=== PATIENT | female | born 1950 | race Two or more races ===

== ENCOUNTER → 2023-03-26 | Outpatient (CLI) | payer OTHER ==
[2023-03-26 09:55] LABS: Basophils # (auto) 0.1 10 ^3/uL (0-0.2); Basophils % (auto) 0.5 % (0.0-2.0); Eosinophils # (auto) 0.2 10 ^3/uL (0-0.8); Eosinophils % (auto) 1.6 % (0.0-7.0); Hematocrit 42.8 % (36.0-46.0); Hemoglobin 14.6 g/dL (12.2-16.2); Lymphocytes # (auto) 2.4 10 ^3/uL (0.4-5.4); Lymphocytes % (auto) 22.2 % (10.0-50.0); Mean Corpuscular Volume 88.1 fL (80.0-100.0); Monocytes # (auto) 0.8 10 ^3/uL (0-1.3); Monocytes % (auto) 7.2 % (0.0-12.0); Neutrophils # (auto) 7.3 10 ^3/uL (1.6-8.6); Neutrophils % (auto) 68.5 % (37.0-80.0); Nucleated Red Blood Cells % 0.2 %; Red Blood Cells 4.86 10^6/uL (4.0-5.20); Red Cell Distribution Width 14.5 % (11.8-14.3); White Blood Cell 10.7 10^3/uL (4.4-10.8)
[2023-03-26 09:59] LABS: Urine Bacteria NONE SEEN /hpf (None Seen); Urine Blood 1+ /uL (Negative); Urine Specific Gravity 1.017 (1.001-1.035); Urine WBC 2 /hpf (0 - 5)
[2023-03-26 10:22] LABS: Potassium 3.8 mmol/L (3.5-5.1)
[2023-03-26 10:43] LABS: Albumin 3.9 g/dL (3.4-5.0); BUN/Creatinine Ratio 11.5 (10.0-20.0); Bilirubin, Total 0.4 mg/dL (0.2-1.0); Calcium 8.9 mg/dL (8.5-10.1); Total Protein 7.8 g/dL (6.4-8.2)
== END | disposition home or self-care (01) ==
LOC: LAB 09:32
PROVIDERS: ATTEND Student in an Organized Health Care Education/Training Program
DX: E11.9 Type 2 diabetes mellitus without complications (principal); I10 Essential (primary) hypertension; E03.8 Other specified hypothyroidism
CPT/HCPCS: 36415; 80053; 80061; 81001; 83036; 84439; 84443; 85025; 87086

== ENCOUNTER → 2023-05-20 | Outpatient (CLI) | payer OTHER | END | disposition home or self-care (01) | LOC: LAB 11:16 | DX: Z91.09 Other allergy status, other than to drugs and biological substances (principal) | CPT/HCPCS: 82785 ==

== ENCOUNTER 2023-09-07 15:42 | Inpatient (IN) | payer OTHER ==
[~2023-09-07] VITALS: Ht 162.6 cm; Wt 124.0 kg
[2023-09-07 16:51] LABS: Basophils # (auto) 0.1 10 ^3/uL (0-0.2); Basophils % (auto) 0.4 % (0.0-2.0); Eosinophils # (auto) 0 10 ^3/uL (0-0.8); Eosinophils % (auto) 0.3 % (0.0-7.0); Hematocrit 43.7 % (36.0-46.0); Hemoglobin 14.8 g/dL (12.2-16.2); Lymphocytes # (auto) 1.4 10 ^3/uL (0.4-5.4); Lymphocytes % (auto) 8.9 % (10.0-50.0); Mean Corpuscular Hemoglobin 28.8 pg (28.0-32.0); Mean Corpuscular Hgb Conc. 33.9 g/dL (32.0-36.0); Monocytes # (auto) 1.4 10 ^3/uL (0-1.3); Monocytes % (auto) 8.5 % (0.0-12.0); Neutrophils # (auto) 13.2 10 ^3/uL (1.6-8.6); Neutrophils % (auto) 81.9 % (37.0-80.0); Nucleated Red Blood Cells % 0.1 %; Red Blood Cells 5.14 10^6/uL (4.0-5.20); Red Cell Distribution Width 14.8 % (11.8-14.3); White Blood Cell 16.1 10^3/uL (4.4-10.8)
[2023-09-07 17:10] LABS: Alanine Aminotransferase 12 U/L (7-40); Albumin 4.4 g/dL (3.2-4.8); Alkaline Phosphatase 106 U/L (46-116); Anion Gap 8 (5-15); Aspartate Aminotransferase 14 U/L (13-40); BUN/Creatinine Ratio 9.8 (10.0-20.0); Bilirubin, Total 1.7 mg/dL (0.2-1.0); Blood Urea Nitrogen 11 mg/dL (9-23); Calcium 9.4 mg/dL (8.7-10.4); Carbon Dioxide 30 mmol/L (20-30); Chloride 94 mmol/L (98-107); Glucose 147 mg/dL (74-106); Sodium 132 mmol/L (136-145); Total Protein 7.2 g/dL (5.7-8.2)
[2023-09-07 17:23] LABS: Potassium 2.9 mmol/L (3.5-5.1)
[2023-09-08] MEDS ORDERED: LACTATED RINGER'S 1,000 ML IV ONE (01:00)
[2023-09-08 01:42] VITALS: PULSE 89; RESP 20; O2SAT 92
[2023-09-08] MEDS ORDERED: metroNIDAZOLE 500MG/100ML 100 ML IV ONE (01:45)
[2023-09-08] MEDS ORDERED: PIPERACILLIN-TAZOB 3.375GM 100 ML IV ONE (01:45)
[2023-09-08 01:51] LABS: INR 1.13 (0.9-1.15); Partial Thromboplastin Time 29.3 SEC (24.5-34.5); Prothrombin Time 11.8 sec (9.3-11.8)
[2023-09-08 01:54] LABS: Magnesium 1.8 mg/dL (1.6-2.6)
[2023-09-08] MEDS ORDERED: ONDANSETRON HCL 4 MG/2 ML VIAL IV ONE (02:00)
[2023-09-08] MEDS ORDERED: POTASSIUM EFFERVESENT TAB 25 MEQ PO ONE (02:00)
[2023-09-08] MEDS ORDERED: fentaNYL CITRATE 100 MCG/2 ML VL IV ONE (02:00)
[2023-09-08 02:17] LABS: Basophils # (auto) 0.1 10 ^3/uL (0-0.2); Basophils % (auto) 0.3 % (0.0-2.0); Eosinophils # (auto) 0.1 10 ^3/uL (0-0.8); Eosinophils % (auto) 0.4 % (0.0-7.0); Hematocrit 43.6 % (36.0-46.0); Hemoglobin 14.7 g/dL (12.2-16.2); Lymphocytes # (auto) 1.5 10 ^3/uL (0.4-5.4); Lymphocytes % (auto) 9.5 % (10.0-50.0); Mean Corpuscular Hemoglobin 28.8 pg (28.0-32.0); Mean Corpuscular Hgb Conc. 33.6 g/dL (32.0-36.0); Mean Corpuscular Volume 85.7 fL (80.0-100.0); Monocytes # (auto) 1.7 10 ^3/uL (0-1.3); Monocytes % (auto) 10.4 % (0.0-12.0); Neutrophils # (auto) 12.9 10 ^3/uL (1.6-8.6); Neutrophils % (auto) 79.4 % (37.0-80.0); Nucleated Red Blood Cells % 0.1 %; Red Blood Cells 5.09 10^6/uL (4.0-5.20); Red Cell Distribution Width 15.1 % (11.8-14.3); White Blood Cell 16.3 10^3/uL (4.4-10.8)
[2023-09-08] MEDS ORDERED: ONDANSETRON HCL 4 MG/2 ML VIAL IV PRN (04:00)
[2023-09-08] MEDS ORDERED: DEXTROSE (50%) 50ML SYRG IV PRN (04:00)
[2023-09-08] MEDS ORDERED: metroNIDAZOLE 500MG/100ML 100 ML IV SCH (06:00)
[2023-09-08] MEDS: ACCU-CHEK COMFORT CURVE STRIP VI SCH ×4 (06:57→22:16)
[2023-09-08] MEDS: LEVOTHYROXINE SODIUM 100 MCG TAB PO SCH (07:00)
[2023-09-08] MEDS: VANCOMYCIN HCL 500MG/5ML ORAL SOL PO SCH ×4 (07:00→22:26)
[2023-09-08] MEDS: InsuLIN REG 1unit/0.01ml Soln (100units/ml) SC SCH ×4 (07:01→22:00)
[2023-09-08] MEDS ORDERED: CALCIUM GLUC 1,000mg/50ml-NS 50 ML IV SCH (08:30)
[2023-09-08] MEDS ORDERED: POTASSIUM CHL 20MEQ/100ML 100 ML IV SCH (08:45)
[2023-09-08] MEDS: metroNIDAZOLE 500MG/100ML 100 ML IV SCH ×2 (08:47→18:18)
[2023-09-08] MEDS: cefTRIAXone 1GM/50ML D5W 50 ML IV SCH (08:48)
[2023-09-08] MEDS: FUROSEMIDE 40 MG TAB PO SCH (08:48)
[2023-09-08] MEDS: LOSARTAN POTASSIUM 25 MG TAB PO SCH (08:48)
[2023-09-08] MEDS: HYDROcodone-ACET 5/325MG TAB PO PRN ×2 (12:42→19:22)
[2023-09-08 12:58] LABS: Basophils # (auto) 0.1 10 ^3/uL (0-0.2); Basophils % (auto) 0.4 % (0.0-2.0); Eosinophils # (auto) 0.2 10 ^3/uL (0-0.8); Eosinophils % (auto) 1.7 % (0.0-7.0); Hematocrit 41.9 % (36.0-46.0); Hemoglobin 14.1 g/dL (12.2-16.2); Lymphocytes # (auto) 1.4 10 ^3/uL (0.4-5.4); Lymphocytes % (auto) 11.2 % (10.0-50.0); Mean Corpuscular Hemoglobin 28.6 pg (28.0-32.0); Mean Corpuscular Hgb Conc. 33.6 g/dL (32.0-36.0); Mean Corpuscular Volume 85.3 fL (80.0-100.0); Monocytes # (auto) 1.7 10 ^3/uL (0-1.3); Monocytes % (auto) 13.8 % (0.0-12.0); Neutrophils # (auto) 9.1 10 ^3/uL (1.6-8.6); Neutrophils % (auto) 72.9 % (37.0-80.0); Red Blood Cells 4.92 10^6/uL (4.0-5.20); Red Cell Distribution Width 14.8 % (11.8-14.3); White Blood Cell 12.4 10^3/uL (4.4-10.8)
[2023-09-08 13:22] LABS: Alanine Aminotransferase 11 U/L (7-40); Alkaline Phosphatase 111 U/L (46-116); Calcium 9.1 mg/dL (8.7-10.4); Carbon Dioxide 31 mmol/L (20-30); Chloride 96 mmol/L (98-107)
[2023-09-08 13:23] LABS: Albumin 4.1 g/dL (3.2-4.8); Anion Gap 7 (5-15); Aspartate Aminotransferase 15 U/L (13-40); BUN/Creatinine Ratio 16.3 (10.0-20.0); Bilirubin, Total 0.9 mg/dL (0.2-1.0); Blood Urea Nitrogen 20 mg/dL (9-23); Glucose 115 mg/dL (74-106); Magnesium 1.9 mg/dL (1.6-2.6); Sodium 134 mmol/L (136-145); Total Protein 6.8 g/dL (5.7-8.2)
[2023-09-08 13:27] LABS: Potassium 2.7 mmol/L (3.5-5.1)
[2023-09-08] MEDS ORDERED: POTASSIUM CHL 20 Meq TABLET PO ONE (14:00)
[2023-09-08] MEDS ORDERED: MAGNESIUM OXIDE 400 MG TAB PO ONE (14:00)
[2023-09-08 19:27] VITALS: PULSE 84; RESP 18; O2SAT 94
[2023-09-08 21:54] LABS: Alanine Aminotransferase 13 U/L (7-40); Albumin 3.9 g/dL (3.2-4.8); Alkaline Phosphatase 94 U/L (46-116); Anion Gap 6 (5-15); Aspartate Aminotransferase 22 U/L (13-40); BUN/Creatinine Ratio 18.4 (10.0-20.0); Bilirubin, Total 0.7 mg/dL (0.2-1.0); Blood Urea Nitrogen 23 mg/dL (9-23); Carbon Dioxide 32 mmol/L (20-30); Chloride 96 mmol/L (98-107); Glucose 105 mg/dL (74-106); Potassium 3.6 mmol/L (3.5-5.1); Sodium 134 mmol/L (136-145); Total Protein 6.5 g/dL (5.7-8.2)
[2023-09-08] MEDS: CHOLECALCIFEROL (VITD3) 1,000UNIT=25mCg TAB PO SCH (22:15)
[2023-09-08] MEDS: ATORVASTATIN 20 MG TAB PO SCH (22:15)
[2023-09-08] MEDS: QUEtiapine FUMARATE 25 MG TAB PO SCH (22:16)
[2023-09-08] MEDS: FLORASTOR (S. BOULARDII) 250 MG CAP PO SCH (22:16)
[2023-09-09] VITALS (8 sets, daily range): BP systolic 96–118; BP diastolic 43–67; PULSE 63–78; RESP 16–19; TEMP 97.5–98.2; O2SAT 3–98
[2023-09-09 00:42] LABS: Urine Bacteria FEW /hpf (None Seen); Urine Blood 1+ /uL (Negative); Urine Clarity HAZY (Clear); Urine Color Yellow (Yellow); Urine Hyaline Cast MOD /lpf (0 - 2); Urine Protein, UAD 1+ (Negative); Urine Specific Gravity 1.024 (1.001-1.035); Urine Urobilinogen Normal (Negative); Urine WBC 82 /hpf (0 - 5)
[2023-09-09] MEDS: metroNIDAZOLE 500MG/100ML 100 ML IV SCH ×3 (02:23→18:15)
[2023-09-09] MEDS: HYDROcodone-ACET 5/325MG TAB PO PRN ×3 (03:06→12:40)
[2023-09-09] MEDS ORDERED: DAPA1TAB4 PO (05:00)
[2023-09-09] MEDS ORDERED: LEVO112T2 PO (05:01)
[2023-09-09] MEDS ORDERED: HYDR25TA4 PO (05:03)
[2023-09-09] MEDS ORDERED: QUET25TA37 PO (05:07)
[2023-09-09] MEDS ORDERED: GABA-1250 PO (05:08)
[2023-09-09] MEDS ORDERED: CHOL20007 PO (05:11)
[2023-09-09] MEDS: ACCU-CHEK COMFORT CURVE STRIP VI SCH ×4 (05:54→22:25)
[2023-09-09] MEDS: LEVOTHYROXINE SODIUM 100 MCG TAB PO SCH (05:54)
[2023-09-09] MEDS: VANCOMYCIN HCL 500MG/5ML ORAL SOL PO SCH ×4 (05:54→22:22)
[2023-09-09] MEDS: InsuLIN REG 1unit/0.01ml Soln (100units/ml) SC SCH ×4 (05:58→22:00)
[2023-09-09 06:41] LABS: Basophils # (auto) 0 10 ^3/uL (0-0.2); Basophils % (auto) 0.3 % (0.0-2.0); Eosinophils # (auto) 1.4 10 ^3/uL (0-0.8); Eosinophils % (auto) 14.7 % (0.0-7.0); Hematocrit 37.4 % (36.0-46.0); Hemoglobin 12.8 g/dL (12.2-16.2); Lymphocytes # (auto) 1.7 10 ^3/uL (0.4-5.4); Mean Corpuscular Hemoglobin 29.5 pg (28.0-32.0); Mean Corpuscular Hgb Conc. 34.1 g/dL (32.0-36.0); Mean Corpuscular Volume 86.3 fL (80.0-100.0); Monocytes # (auto) 1.2 10 ^3/uL (0-1.3); Monocytes % (auto) 12.8 % (0.0-12.0); Neutrophils # (auto) 5.2 10 ^3/uL (1.6-8.6); Neutrophils % (auto) 54.2 % (37.0-80.0); Red Blood Cells 4.33 10^6/uL (4.0-5.20); Red Cell Distribution Width 14.7 % (11.8-14.3); White Blood Cell 9.7 10^3/uL (4.4-10.8)
[2023-09-09 06:59] LABS: Alanine Aminotransferase 13 U/L (7-40); Albumin 3.7 g/dL (3.2-4.8); Alkaline Phosphatase 99 U/L (46-116); Anion Gap 4 (5-15); Aspartate Aminotransferase 17 U/L (13-40); BUN/Creatinine Ratio 19.8 (10.0-20.0); Blood Urea Nitrogen 19 mg/dL (9-23); Calcium 8.6 mg/dL (8.7-10.4); Carbon Dioxide 32 mmol/L (20-30); Chloride 97 mmol/L (98-107); Glucose 91 mg/dL (74-106); Magnesium 2.1 mg/dL (1.6-2.6); Potassium 3.4 mmol/L (3.5-5.1); Sodium 133 mmol/L (136-145)
[2023-09-09 07:00] LABS: Bilirubin, Total 0.6 mg/dL (0.2-1.0); Total Protein 6.2 g/dL (5.7-8.2)
[2023-09-09] MEDS ORDERED: POTASSIUM CHL 20 Meq TABLET PO ONE (08:00)
[2023-09-09] MEDS ORDERED: MET500T PO ×2 (08:01)
[2023-09-09] MEDS ORDERED: VANC500PO PO ×2 (08:01)
[2023-09-09] MEDS ORDERED: SACC250C PO (08:01)
[2023-09-09] MEDS ORDERED: LEVO500T91 PO ×2 (08:01)
[2023-09-09] MEDS: cefTRIAXone 1GM/50ML D5W 50 ML IV SCH (08:31)
[2023-09-09] MEDS: FUROSEMIDE 40 MG TAB PO SCH (08:32)
[2023-09-09] MEDS: CHOLECALCIFEROL (VITD3) 1,000UNIT=25mCg TAB PO SCH (08:32)
[2023-09-09] MEDS: FLORASTOR (S. BOULARDII) 250 MG CAP PO SCH ×2 (08:33→22:24)
[2023-09-09] MEDS: LOSARTAN POTASSIUM 25 MG TAB PO SCH (10:00)
[2023-09-09] MEDS: QUEtiapine FUMARATE 25 MG TAB PO SCH (18:17)
[2023-09-09] MEDS: ATORVASTATIN 20 MG TAB PO SCH (22:24)
[2023-09-09] MEDS: ACETAMINOPHEN 325 MG TAB PO PRN (22:25)
[2023-09-09] MEDS ORDERED: CHOLESTYRAMINE 4 GM POWDER GT SCH (23:00)
[2023-09-10] VITALS (7 sets, daily range): BP systolic 96–125; BP diastolic 45–66; PULSE 67–84; RESP 18–20; TEMP 97.7–98.3; O2SAT 3–97
[2023-09-10] MEDS: metroNIDAZOLE 500MG/100ML 100 ML IV SCH ×3 (01:58→17:37)
[2023-09-10] MEDS: VANCOMYCIN HCL 500MG/5ML ORAL SOL PO SCH ×4 (06:06→21:46)
[2023-09-10] MEDS: LEVOTHYROXINE SODIUM 100 MCG TAB PO SCH (06:09)
[2023-09-10] MEDS: ACCU-CHEK COMFORT CURVE STRIP VI SCH ×4 (06:10→21:56)
[2023-09-10] MEDS: InsuLIN REG 1unit/0.01ml Soln (100units/ml) SC SCH ×4 (06:44→21:56)
[2023-09-10 06:48] LABS: Anion Gap 6 (5-15); Calcium 8.6 mg/dL (8.7-10.4); Carbon Dioxide 30 mmol/L (20-30); Chloride 100 mmol/L (98-107); Potassium 3.7 mmol/L (3.5-5.1); Sodium 136 mmol/L (136-145)
[2023-09-10 06:54] LABS: BUN/Creatinine Ratio 14.3 (10.0-20.0); Blood Urea Nitrogen 10 mg/dL (9-23); Glucose 78 mg/dL (74-106)
[2023-09-10] MEDS: LOSARTAN POTASSIUM 25 MG TAB PO SCH (10:00)
[2023-09-10] MEDS: FLORASTOR (S. BOULARDII) 250 MG CAP PO SCH ×2 (10:13→21:46)
[2023-09-10] MEDS: HYDROcodone-ACET 5/325MG TAB PO PRN ×3 (10:13→21:57)
[2023-09-10] MEDS: FUROSEMIDE 40 MG TAB PO SCH (10:14)
[2023-09-10] MEDS: ENOXAPARIN SOD 40 MG/0.4 ML SYRINGE SC SCH (10:14)
[2023-09-10] MEDS: cefTRIAXone 1GM/50ML D5W 50 ML IV SCH (10:15)
[2023-09-10] MEDS: CHOLESTYRAMINE 4 GM POWDER PO SCH ×3 (11:00→23:10)
[2023-09-10] MEDS: CHOLECALCIFEROL (VITD3) 1,000UNIT=25mCg TAB PO SCH (12:13)
[2023-09-10] MEDS: QUEtiapine FUMARATE 25 MG TAB PO SCH (17:37)
[2023-09-10] MEDS: ATORVASTATIN 20 MG TAB PO SCH (21:46)
[2023-09-11] MEDS: metroNIDAZOLE 500MG/100ML 100 ML IV SCH ×3 (02:01→18:42)
[2023-09-11 04:54] VITALS: BP_SYST 125; BP_SYST 90; BP_DIAS 55; BP_DIAS 71; PULSE 70; PULSE 72; RESP 16; RESP 18; TEMP 97.6; TEMP 98.1; O2SAT 94; O2SAT 95
[2023-09-11] MEDS: VANCOMYCIN HCL 500MG/5ML ORAL SOL PO SCH ×4 (06:06→21:43)
[2023-09-11] MEDS: LEVOTHYROXINE SODIUM 100 MCG TAB PO SCH (06:07)
[2023-09-11] MEDS: InsuLIN REG 1unit/0.01ml Soln (100units/ml) SC SCH ×4 (06:43→22:00)
[2023-09-11] MEDS: ACCU-CHEK COMFORT CURVE STRIP VI SCH ×4 (06:43→22:00)
[2023-09-11 09:00] VITALS: BP 119/65; PULSE 62; RESP 22; TEMP 98.2; O2SAT 96
[2023-09-11] MEDS: CHOLECALCIFEROL (VITD3) 1,000UNIT=25mCg TAB PO SCH (10:00)
[2023-09-11] MEDS: cefTRIAXone 1GM/50ML D5W 50 ML IV SCH (10:41)
[2023-09-11] MEDS: LOSARTAN POTASSIUM 25 MG TAB PO SCH (10:42)
[2023-09-11] MEDS: FUROSEMIDE 40 MG TAB PO SCH (10:43)
[2023-09-11] MEDS: FLORASTOR (S. BOULARDII) 250 MG CAP PO SCH ×2 (10:44→21:42)
[2023-09-11] MEDS: ENOXAPARIN SOD 40 MG/0.4 ML SYRINGE SC SCH (10:44)
[2023-09-11] MEDS: CHOLESTYRAMINE 4 GM POWDER PO SCH ×2 (10:45→23:17)
[2023-09-11 10:57] LABS: Urine Bacteria NONE SEEN /hpf (None Seen); Urine Blood TRACE /uL (Negative); Urine Clarity Clear (Clear); Urine Color Yellow (Yellow); Urine Protein, UAD Negative (Negative); Urine Specific Gravity 1.011 (1.001-1.035); Urine Urobilinogen Normal (Negative); Urine WBC 9 /hpf (0 - 5)
[2023-09-11] MEDS: HYDROcodone-ACET 5/325MG TAB PO PRN ×3 (11:05→21:41)
[2023-09-11 12:52] VITALS: BP 119/58; PULSE 72; RESP 20; TEMP 97.4; O2SAT 97
[2023-09-11 16:44] VITALS: BP 121/60; PULSE 64; RESP 16; TEMP 97.9; O2SAT 92
[2023-09-11] MEDS: QUEtiapine FUMARATE 25 MG TAB PO SCH (18:42)
[2023-09-11 20:00] VITALS: PULSE 76; RESP 18; O2SAT 96
[2023-09-11] MEDS: ATORVASTATIN 20 MG TAB PO SCH (21:41)
[2023-09-11 23:12] VITALS: BP 117/71; PULSE 76; RESP 18; TEMP 98.7; O2SAT 96
[2023-09-12] VITALS (7 sets, daily range): BP systolic 117–131; BP diastolic 50–97; PULSE 61–85; RESP 17–19; TEMP 97.7–98.7; O2SAT 90–96
[2023-09-12] MEDS: metroNIDAZOLE 500MG/100ML 100 ML IV SCH ×3 (02:03→17:45)
[2023-09-12] MEDS: ACETAMINOPHEN 325 MG TAB PO PRN (03:21)
[2023-09-12] MEDS: VANCOMYCIN HCL 500MG/5ML ORAL SOL PO SCH ×4 (05:46→21:33)
[2023-09-12] MEDS: ACCU-CHEK COMFORT CURVE STRIP VI SCH ×4 (06:28→21:34)
[2023-09-12] MEDS: LEVOTHYROXINE SODIUM 100 MCG TAB PO SCH (06:28)
[2023-09-12] MEDS: InsuLIN REG 1unit/0.01ml Soln (100units/ml) SC SCH ×4 (06:28→21:35)
[2023-09-12 07:02] LABS: Basophils # (auto) 0.1 10 ^3/uL (0-0.2); Basophils % (auto) 0.4 % (0.0-2.0); Eosinophils # (auto) 0.9 10 ^3/uL (0-0.8); Eosinophils % (auto) 6.7 % (0.0-7.0); Hematocrit 39.1 % (36.0-46.0); Lymphocytes # (auto) 2.1 10 ^3/uL (0.4-5.4); Lymphocytes % (auto) 15.1 % (10.0-50.0); Mean Corpuscular Hemoglobin 28.7 pg (28.0-32.0); Mean Corpuscular Hgb Conc. 33.4 g/dL (32.0-36.0); Monocytes # (auto) 1.2 10 ^3/uL (0-1.3); Monocytes % (auto) 8.3 % (0.0-12.0); Neutrophils # (auto) 9.7 10 ^3/uL (1.6-8.6); Neutrophils % (auto) 69.5 % (37.0-80.0); Red Blood Cells 4.54 10^6/uL (4.0-5.20); Red Cell Distribution Width 14.9 % (11.8-14.3)
[2023-09-12 07:12] LABS: Chloride 104 mmol/L (98-107); Potassium 3.5 mmol/L (3.5-5.1); Sodium 138 mmol/L (136-145)
[2023-09-12 07:13] LABS: Anion Gap 5 (5-15); Calcium 8.9 mg/dL (8.7-10.4); Carbon Dioxide 29 mmol/L (20-30)
[2023-09-12 07:18] LABS: Glucose 109 mg/dL (74-106)
[2023-09-12 07:19] LABS: Magnesium 1.9 mg/dL (1.6-2.6)
[2023-09-12 07:21] LABS: Blood Urea Nitrogen < 5 mg/dL (9-23)
[2023-09-12] MEDS: FUROSEMIDE 40 MG TAB PO SCH (09:23)
[2023-09-12] MEDS: FLORASTOR (S. BOULARDII) 250 MG CAP PO SCH ×2 (09:24→21:31)
[2023-09-12] MEDS: LOSARTAN POTASSIUM 25 MG TAB PO SCH (09:24)
[2023-09-12] MEDS: ENOXAPARIN SOD 40 MG/0.4 ML SYRINGE SC SCH (09:25)
[2023-09-12] MEDS: HYDROcodone-ACET 5/325MG TAB PO PRN ×3 (10:26→21:32)
[2023-09-12] MEDS: cefTRIAXone 1GM/50ML D5W 50 ML IV SCH (10:26)
[2023-09-12] MEDS: CHOLECALCIFEROL (VITD3) 1,000UNIT=25mCg TAB PO SCH (10:27)
[2023-09-12] MEDS: CHOLESTYRAMINE 4 GM POWDER PO SCH ×2 (12:03→23:39)
[2023-09-12] MEDS: QUEtiapine FUMARATE 25 MG TAB PO SCH (17:45)
[2023-09-12] MEDS: ATORVASTATIN 20 MG TAB PO SCH (21:31)
[2023-09-13] MEDS: metroNIDAZOLE 500MG/100ML 100 ML IV SCH ×3 (02:11→18:01)
[2023-09-13 05:00] VITALS: BP 131/65; PULSE 74; RESP 19; TEMP 98.8; O2SAT 93
[2023-09-13] MEDS: VANCOMYCIN HCL 500MG/5ML ORAL SOL PO SCH ×4 (05:10→22:04)
[2023-09-13] MEDS: InsuLIN REG 1unit/0.01ml Soln (100units/ml) SC SCH ×4 (06:08→21:32)
[2023-09-13] MEDS: ACCU-CHEK COMFORT CURVE STRIP VI SCH ×4 (06:08→21:32)
[2023-09-13] MEDS: LEVOTHYROXINE SODIUM 100 MCG TAB PO SCH (06:12)
[2023-09-13] MEDS: HYDROcodone-ACET 5/325MG TAB PO PRN (06:12)
[2023-09-13 08:00] VITALS: PULSE 64; RESP 18; O2SAT 95
[2023-09-13 08:33] VITALS: BP 116/63; PULSE 64; RESP 18; TEMP 97.9; O2SAT 95
[2023-09-13] MEDS: cefTRIAXone 1GM/50ML D5W 50 ML IV SCH (08:37)
[2023-09-13] MEDS: ENOXAPARIN SOD 40 MG/0.4 ML SYRINGE SC SCH (10:01)
[2023-09-13] MEDS: FLORASTOR (S. BOULARDII) 250 MG CAP PO SCH ×2 (10:01→22:03)
[2023-09-13] MEDS: CHOLECALCIFEROL (VITD3) 1,000UNIT=25mCg TAB PO SCH (10:01)
[2023-09-13] MEDS: FUROSEMIDE 40 MG TAB PO SCH (10:02)
[2023-09-13] MEDS: LOSARTAN POTASSIUM 25 MG TAB PO SCH (10:06)
[2023-09-13] MEDS: CHOLESTYRAMINE 4 GM POWDER PO SCH ×2 (11:07→22:03)
[2023-09-13 13:00] VITALS: BP 150/77; PULSE 77; RESP 17; TEMP 97.9; O2SAT 96
[2023-09-13] MEDS: ACETAMINOPHEN 325 MG TAB PO PRN ×2 (13:00→22:02)
[2023-09-13 17:00] VITALS: BP 129/65; PULSE 68; RESP 17; TEMP 98.1; O2SAT 95
[2023-09-13] MEDS: QUEtiapine FUMARATE 25 MG TAB PO SCH (18:00)
[2023-09-13 22:00] VITALS: BP 127/79; PULSE 72; RESP 19; TEMP 99.3; O2SAT 97
[2023-09-13] MEDS: ATORVASTATIN 20 MG TAB PO SCH (22:03)
[2023-09-14] MEDS: metroNIDAZOLE 500MG/100ML 100 ML IV SCH ×3 (01:08→18:47)
[2023-09-14 05:00] VITALS: BP 130/71; PULSE 79; RESP 20; TEMP 98.4; O2SAT 95
[2023-09-14] MEDS: InsuLIN REG 1unit/0.01ml Soln (100units/ml) SC SCH ×4 (06:20→21:35)
[2023-09-14] MEDS: LEVOTHYROXINE SODIUM 100 MCG TAB PO SCH (06:20)
[2023-09-14] MEDS: VANCOMYCIN HCL 500MG/5ML ORAL SOL PO SCH ×4 (06:20→21:34)
[2023-09-14] MEDS: ACCU-CHEK COMFORT CURVE STRIP VI SCH ×4 (06:20→21:34)
[2023-09-14 09:00] VITALS: BP 121/54; PULSE 81; RESP 15; TEMP 99; O2SAT 94
[2023-09-14] MEDS: cefTRIAXone 1GM/50ML D5W 50 ML IV SCH (10:11)
[2023-09-14] MEDS: FLORASTOR (S. BOULARDII) 250 MG CAP PO SCH ×2 (10:11→21:32)
[2023-09-14] MEDS: ENOXAPARIN SOD 40 MG/0.4 ML SYRINGE SC SCH (10:11)
[2023-09-14] MEDS: LOSARTAN POTASSIUM 25 MG TAB PO SCH (10:12)
[2023-09-14] MEDS: FUROSEMIDE 40 MG TAB PO SCH (10:12)
[2023-09-14] MEDS: CHOLESTYRAMINE 4 GM POWDER PO SCH ×2 (10:18→23:00)
[2023-09-14] MEDS: CHOLECALCIFEROL (VITD3) 1,000UNIT=25mCg TAB PO SCH (10:18)
[2023-09-14] MEDS: ACETAMINOPHEN 325 MG TAB PO PRN ×2 (10:52→18:48)
[2023-09-14 13:00] VITALS: BP 123/57; PULSE 69; RESP 16; TEMP 98; O2SAT 94
[2023-09-14 17:00] VITALS: BP 124/41; PULSE 70; RESP 16; TEMP 98; O2SAT 95
[2023-09-14] MEDS: QUEtiapine FUMARATE 25 MG TAB PO SCH (18:47)
[2023-09-14] MEDS: ATORVASTATIN 20 MG TAB PO SCH (21:32)
[2023-09-14] MEDS: HYDROcodone-ACET 5/325MG TAB PO PRN (21:37)
[2023-09-15] MEDS: metroNIDAZOLE 500MG/100ML 100 ML IV SCH ×3 (02:21→18:28)
[2023-09-15 02:36] VITALS: BP 119/47; PULSE 75; RESP 18; TEMP 98; O2SAT 93
[2023-09-15 05:24] VITALS: BP 114/40; PULSE 75; RESP 18; TEMP 98.3; O2SAT 95
[2023-09-15] MEDS: LEVOTHYROXINE SODIUM 100 MCG TAB PO SCH (06:03)
[2023-09-15] MEDS: ACCU-CHEK COMFORT CURVE STRIP VI SCH ×3 (06:03→17:00)
[2023-09-15] MEDS: VANCOMYCIN HCL 500MG/5ML ORAL SOL PO SCH ×3 (06:04→18:28)
[2023-09-15] MEDS: InsuLIN REG 1unit/0.01ml Soln (100units/ml) SC SCH ×3 (06:04→17:00)
[2023-09-15 07:31] LABS: Hematocrit 39.6 % (36.0-46.0); Hemoglobin 13.1 g/dL (12.2-16.2); Mean Corpuscular Hemoglobin 28.7 pg (28.0-32.0); Mean Corpuscular Hgb Conc. 33.1 g/dL (32.0-36.0); Mean Corpuscular Volume 86.8 fL (80.0-100.0); Red Blood Cells 4.56 10^6/uL (4.0-5.20); Red Cell Distribution Width 15.4 % (11.8-14.3); White Blood Cell 13.1 10^3/uL (4.4-10.8)
[2023-09-15 07:40] LABS: Chloride 108 mmol/L (98-107); Potassium 3.9 mmol/L (3.5-5.1); Sodium 142 mmol/L (136-145)
[2023-09-15 07:41] LABS: Anion Gap 3 (5-15); Basophils % (manual) 0 (0.0-2.0); Blast Cells 0; Carbon Dioxide 31 mmol/L (20-30); Promyelocytes % 0; Reactive Lymphocytes 0
[2023-09-15 07:46] LABS: BUN/Creatinine Ratio 8.5 (10.0-20.0); Blood Urea Nitrogen 6 mg/dL (9-23); Glucose 103 mg/dL (74-106)
[2023-09-15 07:47] LABS: Magnesium 1.8 mg/dL (1.6-2.6)
[2023-09-15 08:38] LABS: Band Neutrophils % (manual) 2; Eosinophils % (manual) 2 (0-7); Lymphocytes % (manual) 19 (10.0-50.0); Metamyelocytes % 2; Monocytes % (manual) 9 (0-12); Myelocytes % 2
[2023-09-15 08:39] LABS: Platelet Estimate Adequate
[2023-09-15 09:00] VITALS: BP 134/63; PULSE 65; RESP 18; TEMP 97.8; O2SAT 94
[2023-09-15] MEDS: cefTRIAXone 1GM/50ML D5W 50 ML IV SCH (09:04)
[2023-09-15] MEDS: FUROSEMIDE 40 MG TAB PO SCH (09:07)
[2023-09-15] MEDS: FLORASTOR (S. BOULARDII) 250 MG CAP PO SCH (09:07)
[2023-09-15] MEDS: ENOXAPARIN SOD 40 MG/0.4 ML SYRINGE SC SCH (09:07)
[2023-09-15] MEDS: LOSARTAN POTASSIUM 25 MG TAB PO SCH (09:07)
[2023-09-15] MEDS: CHOLECALCIFEROL (VITD3) 1,000UNIT=25mCg TAB PO SCH (09:30)
[2023-09-15] MEDS: ACETAMINOPHEN 325 MG TAB PO PRN (09:30)
[2023-09-15] MEDS ORDERED: FIDA200T PO (11:29)
[2023-09-15] MEDS ORDERED: VANC500PO PO (11:29)
[2023-09-15] MEDS: CHOLESTYRAMINE 4 GM POWDER PO SCH (11:59)
[2023-09-15 13:00] VITALS: BP 130/59; PULSE 66; RESP 20; TEMP 98.1; O2SAT 93
[2023-09-15 17:00] VITALS: BP 126/56; PULSE 73; RESP 18; TEMP 98; O2SAT 95
[2023-09-15] MEDS: QUEtiapine FUMARATE 25 MG TAB PO SCH (18:28)
[2023-09-15 22:00] VITALS: BP 124/67; PULSE 71; RESP 20; TEMP 98.4; O2SAT 100
== END 2023-09-15 19:45 | disposition home or self-care (01) | DRG 872 ==
LOC: EDUNIT# 15:42 → ER 15:42 → EDBD 15:42 → OVERFLOW 09-08 03:59 → CENTRAL 09-09 02:01
PROVIDERS: ADMIT Nurse Practitioner; ATTEND Internal Medicine
DX: A41.4 Sepsis due to anaerobes (principal); E87.1 Hypo-osmolality and hyponatremia; N39.0 Urinary tract infection, site not specified; A04.72 Enterocolitis due to Clostridium difficile, not specified as recurrent; Z68.42 Body mass index [BMI] 45.0-49.9, adult; K52.9 Noninfective gastroenteritis and colitis, unspecified; E66.01 Morbid (severe) obesity due to excess calories; E87.6 Hypokalemia; D72.829 Elevated white blood cell count, unspecified; I10 Essential (primary) hypertension; E11.9 Type 2 diabetes mellitus without complications; E03.9 Hypothyroidism, unspecified; E78.00 Pure hypercholesterolemia, unspecified
CPT/HCPCS: 36415; 71045; 74176; 80048; 80053; 81001; 82962; 83036; 83605; 83690; 83735; 83880; 84443; 84484; 85007; 85025; 85027; 85610; 85730; 87045; 87086; 87427; 99291; G0378; J0696; J1815; J2405; J2543; J3490

== ENCOUNTER → 2023-12-17 | Outpatient (CLI) | payer OTHER ==
[~2023-12-17] MED LIST: CHOL20007 PO; DAPA1TAB4 PO; FIDA200T PO; GABA-1250 PO; HYDR25TA4 PO; LEVO112T2 PO; QUET25TA37 PO; SACC250C PO; VANC500PO PO
[2023-12-17 10:31] LABS: Alanine Aminotransferase 17 U/L (7-40); Albumin 4.5 g/dL (3.2-4.8); Alkaline Phosphatase 75 U/L (46-116); Anion Gap 6 (5-15); Aspartate Aminotransferase 16 U/L (13-40); BUN/Creatinine Ratio 13.3 (10.0-20.0); Blood Urea Nitrogen 10 mg/dL (9-23); Calcium 10.2 mg/dL (8.5-10.1); Carbon Dioxide 31 mmol/L (20-30); Chloride 104 mmol/L (98-107); Glucose 97 mg/dL (74-106); Potassium 3.9 mmol/L (3.5-5.1); Sodium 141 mmol/L (136-145)
[2023-12-17 10:32] LABS: Bilirubin, Total 0.7 mg/dL (0.2-1.0); Total Protein 6.9 g/dL (5.7-8.2)
== END | disposition home or self-care (01) ==
LOC: LAB 09:29
PROVIDERS: ATTEND Nurse Practitioner Family
DX: E87.6 Hypokalemia (principal)
CPT/HCPCS: 36415; 80053

== ENCOUNTER → 2024-01-15 | Outpatient (CLI) | payer OTHER | END | disposition home or self-care (01) | LOC: LAB 12:18 | PROVIDERS: ATTEND Internal Medicine | DX: Z12.11 Encounter for screening for malignant neoplasm of colon (principal) | CPT/HCPCS: 82270 ==

== ENCOUNTER → 2024-06-16 | Outpatient (CLI) | payer OTHER ==
[2024-06-16 07:43] LABS: Basophils # (auto) 0 10 ^3/uL (0-0.2); Basophils % (auto) 0.4 % (0.0-2.0); Eosinophils # (auto) 0.2 10 ^3/uL (0-0.8); Eosinophils % (auto) 2.6 % (0.0-7.0); Hematocrit 43.5 % (36.0-46.0); Hemoglobin 14.9 g/dL (12.2-16.2); Lymphocytes # (auto) 2.4 10 ^3/uL (0.4-5.4); Mean Corpuscular Hemoglobin 30.4 pg (28.0-32.0); Mean Corpuscular Hgb Conc. 34.3 g/dL (32.0-36.0); Mean Corpuscular Volume 88.6 fL (80.0-100.0); Monocytes # (auto) 0.6 10 ^3/uL (0-1.3); Monocytes % (auto) 7.1 % (0.0-12.0); Neutrophils # (auto) 5.8 10 ^3/uL (1.6-8.6); Neutrophils % (auto) 63.9 % (37.0-80.0); Red Blood Cells 4.91 10^6/uL (4.0-5.20); White Blood Cell 9.1 10^3/uL (4.4-10.8)
[2024-06-16 08:33] LABS: Creatinine, Urine 70.99 mg/dL (30.0-125.0)
[2024-06-16 08:34] LABS: Alanine Aminotransferase 12 U/L (7-40); Albumin 4.3 g/dL (3.2-4.8); Alkaline Phosphatase 89 U/L (46-116); Anion Gap 3 (5-15); Aspartate Aminotransferase 12 U/L (13-40); BUN/Creatinine Ratio 11.7 (10.0-20.0); Blood Urea Nitrogen 9 mg/dL (9-23); Calcium 10.2 mg/dL (8.7-10.4); Carbon Dioxide 31 mmol/L (20-30); Chloride 108 mmol/L (98-107); Cholesterol 152 mg/dL (< 200); Glucose 105 mg/dL (74-106); HDL Cholesterol 38 mg/dL (40-59); LDL Cholesterol 82 mg/dL (< 100); Potassium 4.2 mmol/L (3.5-5.1); Sodium 142 mmol/L (136-145); Triglycerides 186 mg/dL (< 150)
[2024-06-16 08:35] LABS: Bilirubin, Total 0.6 mg/dL (0.2-1.0); Total Protein 7.2 g/dL (5.7-8.2)
== END | disposition home or self-care (01) ==
LOC: LAB 07:10
PROVIDERS: ATTEND Nurse Practitioner Family
DX: I10 Essential (primary) hypertension (principal); E11.9 Type 2 diabetes mellitus without complications; E66.9 Obesity, unspecified
CPT/HCPCS: 36415; 80053; 80061; 82043; 82306; 82570; 83036; 84439; 84443; 85025

== ENCOUNTER 2024-07-15 08:42 | Day surgery (SDC) | payer OTHER ==
[2024-07-13 11:07] LABS: Urine Bacteria None Seen /hpf (None Seen)
[2024-07-13 11:25] LABS: Basophils # (auto) 0.1 10 ^3/uL (0-0.2); Basophils % (auto) 0.4 % (0.0-2.0); Eosinophils # (auto) 0.1 10 ^3/uL (0-0.8); Hematocrit 45.5 % (36.0-46.0); Hemoglobin 15.7 g/dL (12.2-16.2); Lymphocytes # (auto) 2.4 10 ^3/uL (0.4-5.4); Lymphocytes % (auto) 18.2 % (10.0-50.0); Mean Corpuscular Hemoglobin 30.6 pg (28.0-32.0); Mean Corpuscular Hgb Conc. 34.6 g/dL (32.0-36.0); Mean Corpuscular Volume 88.5 fL (80.0-100.0); Monocytes # (auto) 1.1 10 ^3/uL (0-1.3); Monocytes % (auto) 8.6 % (0.0-12.0); Neutrophils # (auto) 9.6 10 ^3/uL (1.6-8.6); Neutrophils % (auto) 71.8 % (37.0-80.0); Platelet Count (auto) 353 10^3/uL (140-450); Red Blood Cells 5.14 10^6/uL (4.0-5.20); Red Cell Distribution Width 14.5 % (11.8-14.3); White Blood Cell 13.4 10^3/uL (4.4-10.8)
[2024-07-13 11:27] LABS: Urine Blood Negative /uL (Negative); Urine Clarity Clear (Clear); Urine Color Light-Yellow (Yellow); Urine Protein, UAD Negative (Negative); Urine Specific Gravity 1.016 (1.001-1.035); Urine Urobilinogen Normal (Negative); Urine WBC 1 /hpf (0 - 5)
[2024-07-13 11:44] LABS: INR 0.97 (0.9-1.15); Partial Thromboplastin Time 26.6 SEC (24.5-34.5); Prothrombin Time 10.3 sec (9.3-11.8)
[2024-07-13 11:57] LABS: Alanine Aminotransferase 18 U/L (7-40); Albumin 4.7 g/dL (3.2-4.8); Alkaline Phosphatase 96 U/L (46-116); Anion Gap 5 (5-15); Aspartate Aminotransferase 12 U/L (13-40); BUN/Creatinine Ratio 16.9 (10.0-20.0); Bilirubin, Total 0.6 mg/dL (0.2-1.0); Blood Urea Nitrogen 14 mg/dL (9-23); Calcium 10.6 mg/dL (8.7-10.4); Carbon Dioxide 33 mmol/L (20-30); Chloride 102 mmol/L (98-107); Glucose 96 mg/dL (74-106); Potassium 3.9 mmol/L (3.5-5.1); Sodium 140 mmol/L (136-145); Total Protein 7.5 g/dL (5.7-8.2)
[~2024-07-15] VITALS: Ht 165.1 cm; Wt 115.7 kg
[~2024-07-15 08:42] MED LIST changes: +ALBU108A5 IN; +ALEN70SO2 OR; +AMIT10TA12 PO; +ASCO500T11 PO; +ATOR40TA52 PO; +B-COCAP34 OR; +CYAN-17 PO; +FURO1TAB31 PO; +HYDR1TAB97 PO; +HYDR25TA5 PO; +IBUP-1456 PO; +LORA-622 PO; +LOSA-534 PO; +MAGN241.4 PO; +PANT40TA2 PO; +POTA-220 PO; +PREG50CA PO; -VANC500PO PO; +VITA-89 PO; +[UNRECOGNIZED DRUG - CODE] PO
[2024-07-15] MEDS ORDERED: MIDAZOLAM HCL 2MG/2ML 2ml VIAL (1mg/ml) ONE (10:40)
[2024-07-15] MEDS ORDERED: PROPOFOL 10 MG/ML 20 ML IV ONE (11:16)
[2024-07-15] MEDS ORDERED: ONDANSETRON HCL 4 MG/2 ML VIAL ONE (11:19)
[2024-07-15] MEDS ORDERED: KETOROLAC TROMETH 30 MG/ML 1ML VIAL IV ONE (11:30)
[2024-07-15] MEDS ORDERED: ONDANSETRON HCL 4 MG/2 ML VIAL IV ONE (11:30)
[2024-07-15] MEDS: KETOROLAC TROMETH 30 MG/ML 1ML VIAL ONE (11:49)
[2024-07-15 13:50] VITALS: BP 134/57; PULSE 64; RESP 17; O2SAT 98
== END 2024-07-15 14:00 | disposition home or self-care (01) ==
LOC: GI 08:42
PROVIDERS: ATTEND Internal Medicine Gastroenterology
DX: K62.5 Hemorrhage of anus and rectum (principal); K57.30 Diverticulosis of large intestine without perforation or abscess without bleeding; K64.8 Other hemorrhoids; R10.13 Epigastric pain; K20.80 Other esophagitis without bleeding; K29.50 Unspecified chronic gastritis without bleeding; B96.81 Helicobacter pylori [H. pylori] as the cause of diseases classified elsewhere; K31.89 Other diseases of stomach and duodenum; K21.9 Gastro-esophageal reflux disease without esophagitis; K44.9 Diaphragmatic hernia without obstruction or gangrene; I10 Essential (primary) hypertension; E11.40 Type 2 diabetes mellitus with diabetic neuropathy, unspecified; E03.9 Hypothyroidism, unspecified; J45.909 Unspecified asthma, uncomplicated; G43.909 Migraine, unspecified, not intractable, without status migrainosus; M81.0 Age-related osteoporosis without current pathological fracture; F41.9 Anxiety disorder, unspecified; E66.01 Morbid (severe) obesity due to excess calories; Z68.41 Body mass index [BMI] 40.0-44.9, adult; Z79.899 Other long term (current) drug therapy; Z86.16 Personal history of COVID-19; Z98.890 Other specified postprocedural states; Z87.891 Personal history of nicotine dependence; Z88.6 Allergy status to analgesic agent
CPT/HCPCS: 36415; 43239; 45378; 80053; 81001; 82962; 85025; 85610; 85730; 88305; 88312; 88342; J1885; J2250; J2405; J2704; J7030

== ENCOUNTER → 2024-09-07 | Outpatient (CLI) | payer OTHER ==
[2024-09-07 07:16] LABS: Basophils # (auto) 0.1 10 ^3/uL (0-0.2); Basophils % (auto) 0.8 % (0.0-2.0); Eosinophils # (auto) 0.2 10 ^3/uL (0-0.8); Eosinophils % (auto) 1.9 % (0.0-7.0); Hematocrit 43.1 % (36.0-46.0); Hemoglobin 14.7 g/dL (12.2-16.2); Lymphocytes # (auto) 2.8 10 ^3/uL (0.4-5.4); Lymphocytes % (auto) 23.6 % (10.0-50.0); Mean Corpuscular Hemoglobin 30.5 pg (28.0-32.0); Mean Corpuscular Hgb Conc. 34.2 g/dL (32.0-36.0); Mean Corpuscular Volume 89.1 fL (80.0-100.0); Monocytes # (auto) 0.9 10 ^3/uL (0-1.3); Monocytes % (auto) 7.8 % (0.0-12.0); Neutrophils # (auto) 7.7 10 ^3/uL (1.6-8.6); Neutrophils % (auto) 65.9 % (37.0-80.0); Platelet Count (auto) 322 10^3/uL (140-450); Red Blood Cells 4.83 10^6/uL (4.0-5.20); Red Cell Distribution Width 14.5 % (11.8-14.3); White Blood Cell 11.7 10^3/uL (4.4-10.8)
[2024-09-07 08:00] LABS: Alanine Aminotransferase 18 U/L (7-40); Albumin 4.3 g/dL (3.2-4.8); Alkaline Phosphatase 77 U/L (46-116); Amylase 32 U/L (30-118); Anion Gap 2 (5-15); Aspartate Aminotransferase 19 U/L (13-40); BUN/Creatinine Ratio 16.5 (10.0-20.0); Bilirubin, Total 0.6 mg/dL (0.2-1.0); Blood Urea Nitrogen 13 mg/dL (9-23); Calcium 10.1 mg/dL (8.7-10.4); Carbon Dioxide 34 mmol/L (20-31); Chloride 106 mmol/L (98-107); Glucose 104 mg/dL (74-106); Potassium 4.2 mmol/L (3.5-5.1); Sodium 142 mmol/L (136-145); Total Protein 7.1 g/dL (5.7-8.2)
== END | disposition home or self-care (01) ==
LOC: LAB 07:03
PROVIDERS: ATTEND Nurse Practitioner Family
DX: R10.9 Unspecified abdominal pain (principal)
CPT/HCPCS: 36415; 80053; 82150; 85025